=== PATIENT | male | born 1955 | race Caucasian/White ===

== ENCOUNTER → 2016-05-18 | Outpatient (CLI) | payer OTHER ==
[~2016-05-18] MED LIST: ALB/IPRATROPIUM/1 E1 INH; ALBUTEROL17 GM INH; ALLOPURINOL300 MG PO; ASPIRIN81 MG PO; ATIVAN0.5 MG PO; AUGMENTIN875 M1 PO; AUGMENTIN875 MG PO; BELVIQ10 MG PO; BUMEX2 MG PO; BUSPAR15 M2 PO; CETIRIZINE HCL10 MG PO; CLONIDINE HCL0.3 MG PO; COGENTIN1 M1 PO; DOESN'T KNOW; FLUOXETINE HCL20 M1 PO; HALDOL PO; HYDROCODONE-APA1 T56 PO; KLONOPIN1 MG PO; LACTINEX C1 TAB.CHEW PO; LEVAQUIN PO; LEVAQUIN750 MG PO; LIPITOR20 MG PO; LIPITOR40 MG PO; LISINOPRIL20 MG PO; MEDROL DOSEPAK4 MG PO; METOPROLOL SUCC50 MG PO; METOPROLOL TAR25 MG PO; MINIPRESS1 MG PO; MOBIC15 MG PO; NEURONTIN800 MG PO; NORCO 10-325 TA1 TAB PO; NORCO 5/325 TAB1 TAB PO; POTASSIUM CHLO10 MEQ PO; PRAZOSIN HCL2 MG PO; PREDNISONE PO; PROTONIX PO; PROZAC10 M1 PO; TESTOSTERON200 MG/M1 IM; TIZANIDINE HCL4 M1 PO; TYLENOL325 M1 PO; VENLAFAXINE HCL75 MG PO; VISTARIL PO; ZESTRIL40 MG PO; ZYLOPRIM100 MG PO
[2016-05-18 15:31] LABS: BASOPHIL# 0.1 X10e3 (0-0.3); BASOPHIL% 0.9 % (0-2.5); EOSINOPHIL# 0.1 X10e3 (0-0.7); HEMATOCRIT 42.3 % (38.0-50.0); HEMOGLOBIN 13.9 gm/dL (13.0-16.0); LYMPHOCYTE# 2.8 X10e3 (1.0-3.5); LYMPHOCYTE% 26.7 % (17.0-45.0); MEAN CELL VOLUME 81.4 FL (83-96); MEAN CORPUSCULAR HEMOGLOBIN 26.8 PG (28-34); MEAN CORPUSCULAR HGB CONC 32.9 g/dL (30-36); MONOCYTE# 0.9 X10e3 (0-1.0); MONOCYTE% 9.1 % (3.0-12.0); NEUTROPHIL# 6.5 X10e3 (1.5-7.1); NEUTROPHIL% 62.3 % (40-75); PLATELET COUNT 210 X10e3 (140-420); RED CELL DISTRIBUTION WIDTH 14.9 % (11.0-15.5); WHITE BLOOD COUNT 10.4 X10e3 (4.0-10.5)
[2016-05-18 15:33] LABS: DIFF IND NO
[2016-05-18 15:49] LABS: BLOOD UREA NITROGEN 18 mg/dL (9-23); CALCIUM SERUM 9.2 mg/dL (8.4-10.2); CARBON DIOXIDE 31 mmol/L (22-31); CHLORIDE 103 mmol/L (100-111); CHOLESTEROL 73 mg/dL (0-200); GLOM FILT RATE Estimated ABOVE60 mL/min (>60); GLUCOSE FASTING 87 mg/dL (70-110); HDL CHOLESTEROL 45 mg/dL (29-75); LDL CHOLESTEROL 16 mg/dL (-130); LDL/HDL RATIO 0 RATIO (0-4); POTASSIUM 4.1 mmol/L (3.5-5.1); SODIUM 140 mmol/L (135-145); TRIGLYCERIDES 60 mg/dL (10-160)
[2016-05-18 15:57] LABS: THYROID STIMULATING HORMONE 1.05 uIU/ml (0.34-5.60)
[2016-05-18 16:04] LABS: FREE THYROXIN (T4) 1.04 ng/dL (0.58-1.64)
== END | disposition home or self-care (01) ==
LOC: CLAB 14:37
PROVIDERS: Family Medicine
DX: E29.1 Testicular hypofunction (principal); I10 Essential (primary) hypertension; J44.9 Chronic obstructive pulmonary disease, unspecified; F34.1 Dysthymic disorder; E78.2 Mixed hyperlipidemia
CPT/HCPCS: 36415; 80048; 80061; 84439; 84443; 85025

== ENCOUNTER → 2016-06-15 | Outpatient (CLI) | payer OTHER ==
[2016-06-15 16:15] LABS: URINE APPEARANCE CLEAR; URINE BILIRUBIN NEG (NEG); URINE BLOOD NEG (NEG); URINE COLOR YELLOW; URINE GLUCOSE NEG (NEG); URINE KETONE NEG (NEG); URINE LEUKOCYTE ESTERASE NEG (NEG); URINE NITRATE NEG (NEG); URINE PH 6.5 (5-8); URINE PROTEIN NEG (NEG); URINE SPECIFIC GRAVITY 1.008 (1.003-1.035); URINE UROBILINOGEN 0.2 MG/DL (NEG)
[2016-06-15 16:16] LABS: BASOPHIL# 0.1 X10e3 (0-0.3); EOSINOPHIL# 0.1 X10e3 (0-0.7); EOSINOPHIL% 1.1 % (0.0-7.0); HEMOGLOBIN 14.7 gm/dL (13.0-16.0); LYMPHOCYTE# 3.1 X10e3 (1.0-3.5); LYMPHOCYTE% 25.6 % (17.0-45.0); MEAN CELL VOLUME 81.9 FL (83-96); MEAN CORPUSCULAR HEMOGLOBIN 27.3 PG (28-34); MEAN CORPUSCULAR HGB CONC 33.4 g/dL (30-36); MEAN PLATELET VOLUME 9.4 FL (6.5-11.5); MONOCYTE# 0.9 X10e3 (0-1.0); MONOCYTE% 7.7 % (3.0-12.0); NEUTROPHIL# 7.8 X10e3 (1.5-7.1); NEUTROPHIL% 64.6 % (40-75); PLATELET COUNT 203 X10e3 (140-420); RED BLOOD COUNT 5.37 X10e (3.90-5.60); RED CELL DISTRIBUTION WIDTH 15.1 % (11.0-15.5); WHITE BLOOD COUNT 12.1 X10e3 (4.0-10.5)
[2016-06-15 16:21] LABS: DIFF IND NO
[2016-06-15 16:23] LABS: CREATININE,RANDOM URINE 26 mg/dL; TOTAL PROTEIN,RANDOM URINE <10 mg/dl (<10)
[2016-06-15 16:45] LABS: BILIRUBIN, DIRECT 0.2 mg/dL (0.0-0.2); BILIRUBIN,INDIRECT 1.1 mg/dL (0.0-0.9); BILIRUBIN,TOTAL 1.3 mg/dL (0.2-2.0); CALCIUM SERUM 9.4 mg/dL (8.4-10.2); POTASSIUM 3.7 mmol/L (3.5-5.1); PROTEIN TOTAL SERUM 7.3 g/dL (6.0-8.3)
[2016-06-15 16:47] LABS: PROSTATE SPECIFIC AG SCR 0.45 ng/ml (0.0-4.0); THYROID STIMULATING HORMONE 1.53 uIU/ml (0.34-5.60)
[2016-06-15 16:54] LABS: FREE THYROXIN (T4) 0.85 ng/dL (0.58-1.64)
[2016-06-22 07:28] LABS: ALDOSTERONE SERUM 4 ng/dL (***); CALCIUM (PTHINTACT) 9.5 mg/dL (8.6-10.3)
== END | disposition home or self-care (01) ==
LOC: CLAB 15:05
PROVIDERS: Internal Medicine Nephrology
DX: N18.3 Chronic kidney disease, stage 3 (moderate) (principal)
CPT/HCPCS: 36415; 80048; 80076; 81003; 82088; 82306; 82310; 82550; 82570; 82607; 82652; 83036; 83540; 83550; 83735; 83970; 84100; 84156; 84436; 84439; 84443; 84479; 84550; 85025; 86335; G0103

== ENCOUNTER 2016-07-29 21:50 | Observation (INO) | payer OTHER ==
--- NOTE | ~2016-07-29 | CO ---
Unit #: [id number] #: [id number] Patient: PREET HOWARD [id number] [facility] [address] [place], [place] [address] [id number] MR#: [id number] NAME: PREET HOWARD ROOM: 576 Age: 60 Sex: M Admission Date: 07/30/2016 : 1955 Attending Physician: Stephan Mead M.D. Primary Care Physician: Tracie Weathers M.D. Consultation Date: 07/31/2016 CONSULTATION REPORT REASON FOR CONSULTATION Followup. DISCUSSION Mr. Preet Howard is a 60-year-old white male, seen in room 576, bed 1 on 07/31/2016 at [facility]. The patient reports medication is helping with the anxiety, feeling better, able to sleep good, still having anxiety and depression, but denied any suicidal or homicidal ideation. Denied any psychotic symptom. The patient's vital signs; temperature 99.1, pulse 61, respirations 20, blood pressure 118/74, oxygen saturation 99%. REVIEW OF SYSTEMS Complete review of systems is unremarkable. MENTAL STATUS EXAMINATION Vital signs; please see above. General appearance; the patient is moderately obese, dressed casually, sitting comfortably in chair, eating his lunch. Attention span and concentration, fair. Speech; regular rate and coherent. Oriented in time, place, and person. Mood and affect, labile. Speech, monotone. Thought process, concrete. The patient denied any thoughts of harming self or others. Denied any psychotic symptom. Recent and remote memory, fair. Language, intact. Fund of knowledge, fair. Insight and judgment, fair to slightly impaired. DIAGNOSES Psychiatric: Major depressive disorder, recurrent, severe, F33.2; anxiety disorder, not otherwise specified, F40.01. ASSESSMENT AND PLAN 1. Supportive psychotherapy and psychoeducation provided to the patient. 2. Educated about benefits and side effects of medication and course and prognosis of illness. 3. Advised to continue with current treatment. If needed, consider further adjustment of medication. The patient was advised to follow up in outpatient program at [facility] and given information and telephone #[phone]. Please feel free to call if any questions, telephone #[phone]. Dictated by... Rock Serrano M.D. [facility] [place] Unit #: [id number] #: [id number] Patient: PREET HOWARD TD: 08/01/2016 13:51 JOB #: [id number] CONSULTATION REPORT Page 1 of 1 X Rock Serrano MD X CONSULTATION REPORT
--- NOTE | ~2016-07-29 | CO ---
Unit #: [id number] #: [id number] Patient: PREET HOWARD [id number] [address] [facility]. [place], [place] [address] [id number] MR#: [id number] NAME: PREET HOWARD ROOM: 576 Age: 60 Sex: M Admission Date: 07/30/2016 : 1955 Attending Physician: Stephan Mead M.D. Primary Care Physician: Tracie Weathers M.D. CONSULTATION REPORT REASON FOR CONSULTATION Depression, anxiety, panic attack. HISTORY OF PRESENT ILLNESS Mr. Waller is a 60-year-old white male, seen in room 576, bed 1 on 07/30/2016 at [facility]. The patient reports that he has been taking medication for depression from the last 1 year on Prozac and BuSpar, but in the last 2 months, his depression and anxiety is getting worse and reported increase in panic attack. The patient reported Ativan helped him. No history of any substance abuse. The patient has a good support system. The patient was admitted due to heart problems. The patient was pleasant and cooperative during interview. Denied any suicidal or homicidal ideation. Denied any psychotic symptom, but feeling sad, depressed, anxious, nervous. PAST PSYCHIATRIC HISTORY Remarkable for history of depression and anxiety. No history of any suicide attempt or any inpatient treatment. MEDICAL HISTORY Remarkable for history of obstructive sleep apnea, obesity, hypertension, hyperlipidemia, depression, gout, degenerative joint disease. ALLERGIES No known drug allergies. MEDICATIONS The patient is on Lipitor 20 mg daily, Zyloprim, Claritin, Prozac 60 mg daily, Lopressor, bumetanide, aspirin, Neurontin, Zofran. FAMILY HISTORY AND SOCIAL HISTORY The patient has a good support system from family. No history of abuse. No history of any substance abuse. REVIEW OF SYSTEMS Complete review of systems is unremarkable. MENTAL STATUS EXAMINATION Vital signs; temperature 97.9, pulse 60, respirations 18, blood pressure 152/89, oxygen saturation 98%. General appearance; the patient moderately obese, receiving oxygen through the nasal cannula, eating his lunch, compliant and cooperative. Attention span and concentration, fair. Speech, regular rate. Oriented in time, place, and person. Mood and affect; sad, dysphoric, anxious. Thought process, coherent. Thought Unit #: [id number] #: [id number] Patient: PREET HOWARD content, the patient denied any thoughts of harming self or others, but somewhat guarded. Recent and remote memory, fair. Language, intact. Fund of knowledge, fair. Insight and judgment, fair to slightly impaired. DIAGNOSES Psychiatric: Major depressive disorder, recurrent, severe, F33.2; agoraphobia with panic disorder, F40.01. Secondary diagnosis: Deferred. Medical diagnosis: Please refer to H and P. Stressors: Psychosocial stressors. ASSESSMENT/PLAN 1. Supportive psychotherapy and psychoeducation provided to the patient. 2. Educated about benefits and side effects of medication and course and prognosis of illness. 3. Advised to continue with current medication of Prozac and Minipress with a plan to add Ativan 0.5 mg t.i.d. and 1 mg dose now, and Vistaril 25 mg t.i.d. We will continue to follow. Please feel free to call if any questions telephone #[phone]. Dictated by... Anita Javier/sonny TD: 07/31/2016 02:02 JOB #: [id number] CONSULTATION REPORT Page 1 of 1 X Rock Serrano MD CONSULTATION REPORT
--- NOTE | ~2016-07-29 | CR72 ---
[facility] A Service of [facility] & [facility] RADIOLOGY TEXT RESULTS PATIENT: PREET HOWARD LOCATION: [facility] 576-01 : [birth year] UNIT #: [id number] AGE: [address]: Stephan Mead MD SEX: M ORDER DR: [id number] [facility] [address] [place], [place] [address] [id number] I MR#: [id number] Acc #: [id number] NAME: PREET HOWARD : 1955 SEX: M STUDY DATE/TIME: 07/29/2016 22:43 UNIT: [facility] ROOM: [id number] STUDY DESCRIPTION: CR Chest Single View Portable Attending Physician: Stephan Mead M.D. Ordering Physician: Peter Patrick M.D. Primary Care Physician: Tracie Weathers M.D. MEDICAL IMAGING REPORT This report is preliminary unless electronic signature is present EXAM Single view chest INDICATIONS Chest pain for 1 day. Shortness of air. FINDINGS Single portable AP view of the chest compared to 10/24/2015. Heart and mediastinal contours are within normal limits. Lungs are clear. No pneumothorax. IMPRESSION No acute cardiopulmonary findings. Dictated by... Hugo Palm M.D. THIS IS AN ELECTRONICALLY VERIFIED REPORT Hugo Palm M.D. at 07/31/2016 12:50 AM C/broderick TD: 07/29/2016 23:15 JOB #: [id number] MEDICAL IMAGING REPORT Page 1 of 1 COPY
--- NOTE | ~2016-07-29 | EKG ---
PATIENT: PREET HOWARD UNIT #: [id number] Ventricular Rate: 52 BPM Atrial Rate: 52 BPM P-R Interval: 150 ms QRS Duration: 92 ms Q-T Interval: 494 ms QTC Calculation(Bezet): 459 ms P [place]: 51 degrees Calculated R [place]: -10 degrees Calculated T [place]: 12 degrees Diagnosis Line: Sinus bradycardia Diagnosis Line: Otherwise normal ECG Diagnosis Line: Diagnosis Line: Confirmed by RAJWINDER GUADARRAMA MD ([id number]) on Diagnosis Line: 07/30/2016 1:18:55 PM INTERPRETING MD: GREGG
--- NOTE | ~2016-07-29 | CO ---
Unit #: [id number] #: [id number] Patient: PREET HOWARD [id number] [address] [place], [place] [address] [id number] I MR#: [id number] NAME: PREET HOWARD ROOM: 576 Age: 60 Sex: M Admission Date: 07/30/2016 : 1955 Attending Physician: Stephan Mead M.D. Primary Care Physician: Tracie Weathers M.D. CONSULTATION REPORT JOB NOTE: CC: DR. WEATHERS. HISTORY OF PRESENT ILLNESS This is a 60-year-old white male, who had a heart catheterization at [facility] back in 2014 that was reported to have 30% stenosis in the distal LAD, 40% stenosis in the ostial of the RCA. The rest of the coronaries were essentially normal. Echo done back in 2015 showed LVEF of 55% to 60%. Also, the patient has history of diastolic congestive heart failure, hypertension, hyperlipidemia, obstructive sleep apnea with history of hypoventilation syndrome, wears home oxygen and uses a CPAP. He required esophageal dilatation last year for his esophageal stenosis. He has depression. He is a nonsmoker. The patient came in for this recurrent chest pain. He has been experiencing almost 3 weeks. He describes it as a sharp shooting pain, mostly in the midsternal, sometimes goes over to the left anterior chest wall. He gets a little clammy. He has some nausea, but no vomiting. He gets a little dizzy, but denies any presyncope or syncopal episodes. He has occasional palpitations. He denies any increased lower extremity edema. He has not had any recent increased cough, fever, or chills. The patient was concerned with these symptoms, he came in for further evaluation. Last time, he had seen Dr. Tovar was back in 2015. In the emergency room, the patient's blood pressure was 136/70, heart rate was 58, respirations 18, temperature 98.8, and O2 saturation was 99%. He wears 3 L. His chest x-ray did not show anything acute. His EKG showed sinus rhythm, left atrial abnormality, nonspecific ST-T wave abnormalities. Initial cardiac enzymes are negative. His potassium was found to be 3.2, creatinine 1.0, and WBC 11.5. The patient was given aspirin 325 and Ativan 1 mg IV. The patient seems to be resting comfortably. He will be admitted for further evaluation and management. PAST MEDICAL HISTORY 1. Coronary artery disease, cardiac cath done at [facility] back in 2014, reported that had minimal luminal irregularities in the LAD, but 30% stenosis in the distal LAD - ostial of the RCA 40% stenosis, the rest of the RCA luminal irregularities. In 07/2015, 2D echo, LVEF of 55% to 60% with moderate left ventricular hypertrophy and mild tricuspid regurgitation. 2. Hypertension. 3. Hyperlipidemia. 4. History of diastolic congestive heart failure. 5. Degenerative joint disease and gout. 6. Obstructive sleep apnea with history of hypoventilation syndrome, on home oxygen. Unit #: [id number] #: [id number] Patient: PREET HOWARD 7. History of dysphagia, in 10/2015, has esophageal stenosis on an EGD, requiring esophageal dilatation and removal of foreign body. 8. Depression. 9. Posttraumatic stress syndrome. 10. Obesity. BMI is 45 with weight of 280 pounds. 11. Nonsmoker. PAST SURGICAL HISTORY In 10/2015, esophageal dilatation for esophageal stenosis. HOME MEDICATIONS Lipitor 20 mg p.o. at bedtime, Neurontin 800 mg p.o. t.i.d., aspirin 81 mg p.o. daily, Cetirizine 10 mg p.o. daily, Prozac 20 mg three capsules in the morning, prazosin 2 mg p.o. at bedtime and 1 mg at breakfast, BuSpar 15 mg p.o. t.i.d., Bumex 2 mg p.o. daily, metoprolol 50 mg p.o. daily, and allopurinol 300 mg p.o. daily. ALLERGIES No known drug allergies. SOCIAL HISTORY The patient lives in his home alone. He is very sedentary. No alcohol or illicit drug abuse. He has been a lifelong nonsmoker. FAMILY HISTORY Both of his parents from lung cancer. His siblings are in generally well health. REVIEW OF SYSTEMS CONSTITUTIONAL: Denies fever or chills. No recent weight gain or weight loss. HEENT: Denies headache or dizziness. No visual or hearing changes. No lymphadenopathy or thyromegaly. Currently, no difficulty swallowing. CARDIOVASCULAR: Chest pain present. Denies palpitations. Denies paroxysmal nocturnal dyspnea or orthopnea. GASTROINTESTINAL: Denies nausea, vomiting, diarrhea, or abdominal pain. NEUROLOGY: No focal weakness. PHYSICAL EXAMINATION GENERAL: Mr. Howard is a 60-year-old white male, in no acute respiratory distress. He is awake, alert, and oriented. VITAL SIGNS: Blood pressure is 145/96, heart rate 78, respirations 16, temperature 97.7, and O2 saturations 96% on room air. NECK: Trachea midline. No thyromegaly or lymphadenopathy. Normal carotid upstrokes. No jugular venous distention. HEART: S1 and S2. Regular rate and rhythm. No clicks, murmurs, or rubs. LUNGS: Diminished, otherwise clear. ABDOMEN: Obese, soft, and nontender. EXTREMITIES: Pedal pulses are palpable. 1+ pedal edema. DIAGNOSTIC STUDIES LABORATORY RESULTS: Glucose is 94, BUN 15, creatinine 0.9, eGFR is 93.2, sodium 139, potassium is 3.2, chloride 102, CO2 of 27, calcium 10.9, magnesium is 2.0, total protein 7.0, albumin 3.8, bilirubin total 1.2, AST is 28, ALT 31, and alkaline phosphatase is 99. WBCs 11.5, hemoglobin 13.6, hematocrit 40.9, and platelets 183. Protime is 10.7, INR is 1.0. Prothrombin is pending. Unit #: [id number] #: [id number] Patient: PREET HOWARD IMAGING STUDIES: Chest x-ray shows nothing acute. Lungs are clear. CARDIOVASCULAR STUDIES: EKG shows a sinus bradycardia, heart rate 52 beats per minute, poor R-wave progression, prolonged QT with ST-T wave inversion in inferolateral leads. IMPRESSION 1. Atypical chest pain. 2. Anxiety. 3. History of cardiac cath back in 2014. See details in HPI. 4. Hypokalemia. 5. LVEF of 55% to 60% on echo in 07/2015. 6. Hypertension. 7. Hyperlipidemia. 8. History of diastolic congestive heart failure. 9. Obstructive sleep apnea, uses CPAP. 10. Obesity with body mass index of 45 with weight of 280 pounds. 11. Depression and posttraumatic stress disorder. 12. Degenerative joint disease. 13. Gout. 14. Nonsmoker. PLAN 1. Continue to monitor cardiac enzymes and EKG. So far, they were negative on interview and exam. The patient's chest pain is fairly atypical. His last cardiac cath a couple of years ago showed mild nonobstructive CAD, so if his enzymes remain negative, we will just follow up as an outpatient. 2. The patient thinks most of his symptoms could be from anxiety. We will have Dr. Serrano to see the patient for anxiety issues. 3. As Dr. Rm, Pulmonology to see for his hypoventilation syndrome, I would see if his symptoms could possibly be something pulmonary. 4. Obtain a fasting lipid profile and TSH and evaluate. 5. We will supplement the patient's potassium. 6. Obtain a 2D echo and re-evaluate his LV function and valves. See if there is anything abnormal that would cause the symptoms. 7. Encourage the patient healthy lifestyle changes including exercise and lose weight. 8. Further recommendations pending per Dr. Rosas. Thank you very much for allowing us to assist in the care. Dictated by... Herminia Gayle/sonny TD: 07/31/2016 05:28 JOB #: [id number] Unit #: [id number] #: [id number] Patient: PREET HOWARD CONSULTATION REPORT Page 1 of 1 X Danette Khan APRN X CONSULTATION REPORT
--- NOTE | ~2016-07-29 | EKG ---
PATIENT: PREET HOWARD UNIT #: [id number] Ventricular Rate: 62 BPM Atrial Rate: 62 BPM P-R Interval: 148 ms QRS Duration: 86 ms Q-T Interval: 440 ms QTC Calculation(Bezet): 446 ms P [place]: 26 degrees Calculated R [place]: -24 degrees Calculated T [place]: -5 degrees Diagnosis Line: Normal sinus rhythm Diagnosis Line: Possible Left atrial enlargement Diagnosis Line: Borderline ECG Diagnosis Line: No previous ECGs available Diagnosis Line: Confirmed by RAJWINDER GUADARRAMA MD ([id number]) on Diagnosis Line: 07/30/2016 1:17:58 PM INTERPRETING MD: GREGG
--- NOTE | ~2016-07-29 | CO ---
Unit #: [id number] #: [id number] Patient: PREET HOWARD [id number] [address] [address] [id number] MR#: [id number] NAME: PREET HOWARD ROOM: 576 Age: 60 Sex: M Admission Date: 07/30/2016 : 1955 Attending Physician: Stephan Mead M.D. Primary Care Physician: Tracie Weathers M.D. CONSULTATION REPORT REASON FOR CONSULTATION Shortness of breath. HISTORY OF PRESENT ILLNESS This patient basically is a 60-year-old male with a past medical history of obstructive sleep apnea on CPAP, coronary artery disease, hypertension, dyslipidemia, diastolic heart failure, obesity, hypoventilation syndrome on home oxygen, presents with a complaint of shortness of breath and chest pain. Had esophageal dilatation done in the past and admitted with chest pain. I am seeing him at the bedside, currently on oxygen. Denies any headache, blurry vision, chest pain. PHYSICAL EXAMINATION VITAL SIGNS: Temperature 98, pulse 87, respirations 12, blood pressure 130/70. NEUROLOGICAL: Awake, alert, oriented. No neuro deficit. HEENT: PERRLA. NECK: Supple. No JVD. CHEST: Bilateral air entry, bilateral mild rhonchi. GI: Nontender, soft. Bowel sounds positive. EXTREMITIES: No edema. SKIN: No rashes, no ulcers. LYMPHATIC: No lymphadenopathy. DIAGNOSTIC STUDIES Labs and imaging have been reviewed. LABORATORY: White count is 11, hemoglobin 13, hematocrit is 40. IMAGING: Chest x-ray - no acute cardiopulmonary infiltrate. PAST MEDICAL HISTORY As described above. SOCIAL HISTORY Nonsmoker, no alcohol, no drug abuse. MEDICATIONS As per MAR, has been reviewed. FAMILY HISTORY Positive for lung cancer. Unit #: [id number] #: [id number] Patient: PREET HOWARD ASSESSMENT AND PLAN 1. Chest pain. 2. Shortness of breath. 3. Obstructive sleep apnea, on home oxygen. 4. Diastolic heart failure. Plan is to continue oxygen, bronchodilator. Continue CPAP at night. D-dimer. Will continue to follow patient. Please see orders for detailed plan. Thank you very much for this consultation. We will continue to follow. Dictated by... Anita Douglas/leilani TD: 07/30/2016 12:09 JOB #: [id number] CONSULTATION REPORT Page 1 of 1 X Courtney Rm MD CONSULTATION REPORT
--- NOTE | ~2016-07-29 | BMI ---
[facility] DATE: 07/31/16 Patient: PREET HOWARD Physician: TRACY Address: [address] [place] [address] Room/Bed: [address] [place] [address], Zip: [place] [address] Admit Date: 07/30/16 Date of : [birth year] Height: 5 6 Weight: 286 130 HIGH BMI NOTE: DX: 60 Y.O. MALE ADMITTED FOR CP X 3 WEEKS ANTHROPOMETRICS: 5'6", WT: 280# (127 KG), BMI: 45.2 DIET: HEALTHY HEART INTERVENTION: 1. HEALTHY HEART DIET RECOMMENDATIONS: 1. RECOMMEND TO CONTINUE CURRENT DIET ORDER ABOVE TO PROMOTE GRADUAL WEIGHT LOSS TOWARDS HEALTHY BMI (19.0-25.0) OR +/-10%IBW RD WILL F/U PER PROTOCOL Respectfully, SANDRA WILLSON MS, RD, LD [facility] cc: client file
--- NOTE | ~2016-07-29 | HP ---
Unit #: [id number] #: [id number] Patient: PREET HOWARD [id number] [address] [place], [place] [address] [id number] I MR#: [id number] NAME: PREET HOWARD ROOM: [facility] Age: 60 Sex: M Admission Date: 07/30/2016 : 1955 Attending Physician: Stephan Mead M.D. Primary Care Physician: Tracie Weathers M.D. HISTORY AND PHYSICAL ADDENDUM The patient presented to the hospital with complaints of chest pain, which was atypical in nature. Serial cardiac enzymes were negative, and he ruled out for a myocardial infarction. Some of his symptoms were thought to be due to anxiety. Dr. Serrano with psychiatry was consulted, and the patient was started on Ativan 0.5 mg p.o. t.i.d. and Vistaril 25 mg p.o. t.i.d. He had some shortness of breath but no evidence of congestive heart failure on exam or chest x-ray. D-dimer was normal, and no further imaging was required. The patient had a cardiac catheterization in 2014 at [facility], which revealed nonobstructive disease up to 30% to 40%. Due to atypical features and nonobstructive disease, no further ischemic workup was completed. He has ambulated without complaints. His O2 saturation is 95% on 3 liters of home oxygen. He is stable and will be discharged home on home oxygen as previously ordered. Prescriptions have been provided for Vistaril, Ativan and Minipress. A followup appointment has been arranged with Dr. Tovar in October. Dictated by Chloe Tatum APRN for Gonzalez Tovar M.D. TR/anil TD: 07/31/2016 17:09 JOB #: [id number] HISTORY AND PHYSICAL Page 1 of 1 X X HISTORY AND PHYSICAL
--- NOTE | ~2016-07-29 | EKG ---
PATIENT: PREET HOWARD UNIT #: [id number] Ventricular Rate: 57 BPM Atrial Rate: 57 BPM P-R Interval: 154 ms QRS Duration: 88 ms Q-T Interval: 458 ms QTC Calculation(Bezet): 445 ms P [place]: 38 degrees Calculated T [place]: 1 degrees Diagnosis Line: Sinus bradycardia Diagnosis Line: Normal ECG Diagnosis Line: When compared with ECG of 30-JUL-2016 07:49, Diagnosis Line: No significant change was found Diagnosis Line: Confirmed by JOVANNI ZEPEDA MD ([id number]) on Diagnosis Line: 08/04/2016 5:13:04 PM INTERPRETING MD: JH
[~2016-07-29 21:50] MED LIST changes: -ALLOPURINOL300 MG PO; -ATIVAN0.5 MG PO; -BUSPAR15 M2 PO; -METOPROLOL TAR25 MG PO; -MINIPRESS1 MG PO; -PRAZOSIN HCL2 MG PO; -PROZAC10 M1 PO; -VISTARIL PO
[2016-07-30 02:00] LABS: BASOPHIL# 0.1 X10e3 (0-0.3); BASOPHIL% 0.7 % (0-2.5); DIFF IND NO; EOSINOPHIL# 0.1 X10e3 (0-0.7); EOSINOPHIL% 1.1 % (0.0-7.0); HEMATOCRIT 40.9 % (38.0-50.0); HEMOGLOBIN 13.6 gm/dL (13.0-16.0); LYMPHOCYTE# 3.1 X10e3 (1.0-3.5); LYMPHOCYTE% 27.1 % (17.0-45.0); MEAN CELL VOLUME 82.6 FL (83-96); MEAN CORPUSCULAR HEMOGLOBIN 27.5 PG (28-34); MEAN CORPUSCULAR HGB CONC 33.3 g/dL (30-36); MONOCYTE# 1.2 X10e3 (0-1.0); NEUTROPHIL% 61.1 % (40-75); PLATELET COUNT 183 X10e3 (140-420); RED BLOOD COUNT 4.96 X10e (3.90-5.60); RED CELL DISTRIBUTION WIDTH 14.9 % (11.0-15.5); WHITE BLOOD COUNT 11.5 X10e3 (4.0-10.5)
[2016-07-30 02:07] LABS: POC - CKMB 1.1 ng/mL (0.0-7.9); POC - TROPONIN <0.05 ng/mL (<=0.05)
[2016-07-30 02:30] LABS: ALBUMIN SERUM 3.8 g/dL (3.5-5.0); BILIRUBIN, DIRECT 0.2 mg/dL (0.0-0.2); BILIRUBIN,TOTAL 1.2 mg/dL (0.2-2.0); CALCIUM SERUM 8.7 mg/dL (8.4-10.2); POTASSIUM 3.2 mmol/L (3.5-5.1)
[2016-07-30] MEDS ORDERED: PROZAC10 M1 PO (05:02)
[2016-07-30] MEDS ORDERED: PRAZOSIN HCL2 MG PO (05:03)
[2016-07-30] MEDS ORDERED: BUSPAR15 M2 PO (05:04)
[2016-07-30] MEDS ORDERED: BUMEX2 MG PO (05:05)
[2016-07-30] MEDS ORDERED: METOPROLOL TAR25 MG PO (05:06)
[2016-07-30] MEDS ORDERED: ALLOPURINOL300 MG PO (05:06)
[2016-07-30 07:03] LABS: POC - CKMB <1.0 ng/mL (0.0-7.9); POC - TROPONIN <0.05 ng/mL (<=0.05)
[2016-07-30 07:56] LABS: BUN/CREATININE RATIO 16.66; CALCIUM SERUM 8.9 mg/dL (8.4-10.2); CREATININE SERUM 0.9 mg/dL (0.6-1.4); GLOM FILT RATE Estimated 93.2 mL/min (>60); POTASSIUM 3.5 mmol/L (3.5-5.1)
[2016-07-30 09:21] LABS: PROTHROMBIN TIME (PATIENT) 10.7 SECONDS (9.6-11.5)
[2016-07-30 10:53] LABS: CHOLESTEROL 66 mg/dL (0-200); HDL CHOLESTEROL 48 mg/dL (29-75); LDL CHOLESTEROL 10 mg/dL (-130); LDL/HDL RATIO 0 RATIO (0-4); TRIGLYCERIDES 39 mg/dL (10-160)
[2016-07-31 13:11] LABS: PROTHROMBIN TIME (PATIENT) 10.2 SECONDS (9.6-11.5)
[2016-07-31 13:24] LABS: BUN/CREATININE RATIO 15.55; CALCIUM SERUM 8.9 mg/dL (8.4-10.2); CREATININE SERUM 0.9 mg/dL (0.6-1.4); GLOM FILT RATE Estimated 93.2 mL/min (>60); MAGNESIUM 1.9 mg/dL (1.6-3.0); POTASSIUM 3.6 mmol/L (3.5-5.1)
[2016-07-31] MEDS ORDERED: MINIPRESS1 MG PO (15:20)
[2016-07-31] MEDS ORDERED: ATIVAN0.5 MG PO (15:21)
[2016-07-31] MEDS ORDERED: VISTARIL PO (15:21)
== END 2016-07-31 17:14 | disposition home or self-care (01) ==
LOC: CED 21:50 → CEDOF 07-30 04:15 → C5C 07-30 04:15 → CEDOF 07-30 04:51 → CED 07-30 04:51 → C5C 07-30 09:04 → CEDOF 07-30 09:04 → C5C 07-31 17:14
PROVIDERS: Emergency Medicine; Internal Medicine Cardiovascular Disease
DX: R07.89 Other chest pain (principal); F33.2 Major depressive disorder, recurrent severe without psychotic features; F40.01 Agoraphobia with panic disorder; G47.33 Obstructive sleep apnea (adult) (pediatric); I25.10 Atherosclerotic heart disease of native coronary artery without angina pectoris; I11.0 Hypertensive heart disease with heart failure; I50.30 Unspecified diastolic (congestive) heart failure; I08.1 Rheumatic disorders of both mitral and tricuspid valves; E78.5 Hyperlipidemia, unspecified; K21.9 Gastro-esophageal reflux disease without esophagitis; M10.9 Gout, unspecified; E66.01 Morbid (severe) obesity due to excess calories; Z80.1 Family history of malignant neoplasm of trachea, bronchus and lung
CPT/HCPCS: 36415; 71010; 80048; 80061; 80076; 82553; 83735; 84443; 84484; 85025; 85379; 85610; 93005; 93306; 99285; G0378; J2060

== ENCOUNTER 2016-08-26 16:17 | Emergency (ER) | payer OTHER ==
--- NOTE | ~2016-08-26 | CR72 ---
[facility] A Service of [facility] & [facility] RADIOLOGY TEXT RESULTS PATIENT: PREET HOWARD LOCATION: [facility] : 57 UNIT #: [id number] AGE: [address]: Douglas Osuna MD SEX: M ORDER DR: [id number] [facility] [address] [place], [place] [address] [id number] MR#: [id number] Acc #: [id number] NAME: PREET HOWARD : 1955 SEX: M STUDY DATE/TIME: 08/26/2016 16:57 UNIT: [facility] ROOM: STUDY DESCRIPTION: CR Chest Single View Portable Attending Physician: Douglas Osuna M.D. Ordering Physician: Douglas Osuna M.D. Primary Care Physician: Tracie Weathers M.D. MEDICAL IMAGING REPORT This report is preliminary unless electronic signature is present EXAM Portable chest INDICATIONS Left-sided chest pain and shortness of air today. PROCEDURE Frontal view chest COMPARISON 07/29/2016 FINDINGS Heart size is unchanged. Pulmonary vessels are stable. There is no new dense consolidation, visible pleural fluid or pneumothorax. IMPRESSION No active process. No change from 07/29/2016. Dictated by... Phil Oneil M.D. THIS IS AN ELECTRONICALLY VERIFIED REPORT Phil Oneil M.D. at 08/27/2016 10:09 AM Oleg TD: 08/26/2016 17:36 JOB #: [id number] MEDICAL IMAGING REPORT Page 1 of 1 COPY
--- NOTE | ~2016-08-26 | EKG ---
PATIENT: PREET HOWARD UNIT #: [id number] Ventricular Rate: 77 BPM Atrial Rate: 77 BPM P-R Interval: 152 ms QRS Duration: 84 ms Q-T Interval: 380 ms QTC Calculation(Bezet): 430 ms P [place]: 42 degrees Calculated R [place]: -16 degrees Calculated T [place]: 0 degrees Diagnosis Line: Normal sinus rhythm Diagnosis Line: Normal ECG Diagnosis Line: When compared with ECG of 14-DEC-2012 13:16, Diagnosis Line: (unconfirmed) Diagnosis Line: Questionable change in QRS axis Diagnosis Line: Confirmed by JOVANNI ZEPEDA MD ([id number]) on Diagnosis Line: 08/27/2016 7:27:48 AM INTERPRETING MD: JH
[~2016-08-26 16:17] MED LIST changes: +ALLOPURINOL300 MG PO; +ATIVAN0.5 MG PO; +BUSPAR15 M2 PO; +METOPROLOL TAR25 MG PO; +MINIPRESS1 MG PO; +PRAZOSIN HCL2 MG PO; +PROZAC10 M1 PO; +VISTARIL PO
[2016-08-26 17:04] LABS: BASOPHIL# 0.1 X10e3 (0-0.3); BASOPHIL% 0.6 % (0-2.5); EOSINOPHIL# 0.1 X10e3 (0-0.7); EOSINOPHIL% 1.1 % (0.0-7.0); HEMATOCRIT 43.9 % (38.0-50.0); HEMOGLOBIN 14.2 gm/dL (13.0-16.0); LYMPHOCYTE# 2.3 X10e3 (1.0-3.5); LYMPHOCYTE% 19.8 % (17.0-45.0); MEAN CELL VOLUME 84.5 FL (83-96); MEAN CORPUSCULAR HEMOGLOBIN 27.4 PG (28-34); MEAN CORPUSCULAR HGB CONC 32.5 g/dL (30-36); MEAN PLATELET VOLUME 8.8 FL (6.5-11.5); MONOCYTE# 0.9 X10e3 (0-1.0); MONOCYTE% 7.6 % (3.0-12.0); NEUTROPHIL# 8.3 X10e3 (1.5-7.1); NEUTROPHIL% 70.9 % (40-75); PLATELET COUNT 186 X10e3 (140-420); RED BLOOD COUNT 5.19 X10e (3.90-5.60); RED CELL DISTRIBUTION WIDTH 15.3 % (11.0-15.5); WHITE BLOOD COUNT 11.7 X10e3 (4.0-10.5)
[2016-08-26 17:05] LABS: DIFF IND NO
[2016-08-26 17:17] LABS: PARTIAL THROMBOPLASTIN TIME 25.9 SECONDS (23.5-31.3); PROTHROMBIN TIME (PATIENT) 11.3 SECONDS (10.0-11.7)
[2016-08-26 17:25] LABS: ALBUMIN SERUM 3.6 g/dL (3.5-5.0); BILIRUBIN, DIRECT 0.2 mg/dL (0.0-0.2); BILIRUBIN,INDIRECT 1.1 mg/dL (0.0-0.9); BILIRUBIN,TOTAL 1.3 mg/dL (0.2-2.0); BUN/CREATININE RATIO 12.5; CALCIUM SERUM 8.8 mg/dL (8.4-10.2); CREATININE SERUM 0.8 mg/dL (0.6-1.4); GLOM FILT RATE Estimated 97.8 mL/min (>60); POTASSIUM 3.4 mmol/L (3.5-5.1); PROTEIN TOTAL SERUM 6.8 g/dL (6.0-8.3)
[2016-08-26 17:59] LABS: POC - CKMB 1.2 ng/mL (0.0-7.9); POC - TROPONIN <0.05 ng/mL (<=0.05)
[2016-08-26 18:10] LABS: POC - CKMB <1.0 ng/mL (0.0-7.9); POC - TROPONIN <0.05 ng/mL (<=0.05)
[2016-08-26 19:30] LABS: POC - CKMB <1.0 ng/mL (0.0-7.9); POC - TROPONIN <0.05 ng/mL (<=0.05)
[2016-08-26 20:16] LABS: POC - CKMB 1.3 ng/mL (0.0-7.9); POC - TROPONIN <0.05 ng/mL (<=0.05)
== END 2016-08-26 21:35 | disposition home or self-care (01) ==
LOC: CED 16:17
PROVIDERS: Emergency Medicine
DX: R07.89 Other chest pain (principal); E78.5 Hyperlipidemia, unspecified; I10 Essential (primary) hypertension; Z79.82 Long term (current) use of aspirin; Z79.899 Other long term (current) drug therapy
CPT/HCPCS: 71010; 80048; 80076; 82553; 83880; 84484; 85025; 85610; 85730; 93005; 99285

== ENCOUNTER 2016-09-10 12:38 | Emergency (ER) | payer OTHER ==
--- NOTE | ~2016-09-10 | CR72 ---
[facility] A Service of [facility] & [facility] RADIOLOGY TEXT RESULTS PATIENT: PREET HOWARD LOCATION: [facility] : 57 UNIT #: [id number] AGE: [address]: Jewel Deleon MD SEX: M ORDER DR: [id number] [facility] [address] [place], [place] [address] [id number] E MR#: [id number] Acc #: [id number] NAME: PREET HOWARD : 1955 SEX: M STUDY DATE/TIME: 09/10/2016 14:18 UNIT: [facility] ROOM: STUDY DESCRIPTION: CR Chest Single View Portable Attending Physician: Jewel Deleon M.D. Ordering Physician: Jewel Deleon M.D. Primary Care Physician: Tracie Weathers M.D. MEDICAL IMAGING REPORT This report is preliminary unless electronic signature is present EXAM Portable chest 09/10/2016 HISTORY 60-year-old male, chest pain, short of air past 3 weeks. History of high blood pressure, CVA x2. COMPARISON STUDIES Comparison 08/26/2016 FINDINGS AP portable chest demonstrates cardiac enlargement. There is mild vascular congestion and poor definition of costophrenic angles. No airspace infiltrates identified. Large body habitus noted. IMPRESSION Cardiomegaly with mild vascular congestion. Consider early or low grade heart failure. Large body habitus with low lung volumes. Dictated by... Sai Banks M.D. THIS IS AN ELECTRONICALLY VERIFIED REPORT Sai Banks M.D. at 09/11/2016 8:11 AM Isis TD: 09/10/2016 16:59 JOB #: [id number] MEDICAL IMAGING REPORT Page 1 of 1 COPY
--- NOTE | ~2016-09-10 | EKG ---
PATIENT: PREET HOWARD UNIT #: [id number] Ventricular Rate: 62 BPM Atrial Rate: 62 BPM P-R Interval: 152 ms QRS Duration: 86 ms Q-T Interval: 386 ms QTC Calculation(Bezet): 391 ms P [place]: 51 degrees Calculated R [place]: -22 degrees Calculated T [place]: -3 degrees Diagnosis Line: Normal sinus rhythm Diagnosis Line: Normal ECG Diagnosis Line: When compared with ECG of 26-AUG-2016 16:34, Diagnosis Line: No significant change was found Diagnosis Line: Confirmed by CUBA BRO MD ([id number]) on Diagnosis Line: 09/11/2016 8:00:19 AM INTERPRETING MD: ADALI DWYER
[2016-09-10 13:27] LABS: POC - CKMB <1.0 ng/mL (0.0-7.9); POC - TROPONIN <0.05 ng/mL (<=0.05)
[2016-09-10 14:05] LABS: BASOPHIL# 0.1 X10e3 (0-0.3); BASOPHIL% 0.9 % (0-2.5); EOSINOPHIL# 0.2 X10e3 (0-0.7); EOSINOPHIL% 1.6 % (0.0-7.0); HEMATOCRIT 44.1 % (38.0-50.0); HEMOGLOBIN 14.1 gm/dL (13.0-16.0); LYMPHOCYTE# 2.5 X10e3 (1.0-3.5); LYMPHOCYTE% 21.8 % (17.0-45.0); MEAN CELL VOLUME 84.1 FL (83-96); MEAN CORPUSCULAR HGB CONC 32.1 g/dL (30-36); MEAN PLATELET VOLUME 9.2 FL (6.5-11.5); MONOCYTE# 1.1 X10e3 (0-1.0); MONOCYTE% 9.5 % (3.0-12.0); NEUTROPHIL# 7.6 X10e3 (1.5-7.1); NEUTROPHIL% 66.2 % (40-75); PLATELET COUNT 173 X10e3 (140-420); RED BLOOD COUNT 5.24 X10e (3.90-5.60); RED CELL DISTRIBUTION WIDTH 14.7 % (11.0-15.5); WHITE BLOOD COUNT 11.5 X10e3 (4.0-10.5)
[2016-09-10 14:06] LABS: DIFF IND NO
[2016-09-10 14:25] LABS: ALBUMIN SERUM 3.6 g/dL (3.5-5.0); BILIRUBIN, DIRECT 0.2 mg/dL (0.0-0.2); BILIRUBIN,INDIRECT 0.9 mg/dL (0.0-0.9); BILIRUBIN,TOTAL 1.1 mg/dL (0.2-2.0); BUN/CREATININE RATIO 15.55; CREATININE SERUM 0.9 mg/dL (0.6-1.4); GLOM FILT RATE Estimated 93.2 mL/min (>60); PROTEIN TOTAL SERUM 6.8 g/dL (6.0-8.3)
[2016-09-10 14:29] LABS: PARTIAL THROMBOPLASTIN TIME 26.7 SECONDS (23.5-31.3); PROTHROMBIN TIME (PATIENT) 10.7 SECONDS (10.0-11.7)
[2016-09-10 15:12] LABS: POC - CKMB <1.0 ng/mL (0.0-7.9); POC - TROPONIN <0.05 ng/mL (<=0.05)
== END 2016-09-10 15:47 | disposition home or self-care (01) ==
LOC: CED 12:38
PROVIDERS: Emergency Medicine
DX: R07.9 Chest pain, unspecified (principal); F41.9 Anxiety disorder, unspecified; F43.10 Post-traumatic stress disorder, unspecified; F32.9 Major depressive disorder, single episode, unspecified; I11.0 Hypertensive heart disease with heart failure; I50.9 Heart failure, unspecified; F17.210 Nicotine dependence, cigarettes, uncomplicated; Z79.82 Long term (current) use of aspirin; Z79.899 Other long term (current) drug therapy
CPT/HCPCS: 36415; 71010; 80048; 80076; 82553; 83880; 84484; 85025; 85610; 85730; 93005; 96374; 99285

== ENCOUNTER → 2016-11-05 | Outpatient (CLI) | payer OTHER ==
[2016-11-05 16:51] LABS: HEMATOCRIT 45.3 % (38.0-50.0); HEMOGLOBIN 15.2 gm/dL (13.0-16.0); MEAN CELL VOLUME 79.4 FL (83-96); MEAN CORPUSCULAR HEMOGLOBIN 26.6 PG (28-34); MEAN CORPUSCULAR HGB CONC 33.5 g/dL (30-36); MEAN PLATELET VOLUME 8.8 FL (6.5-11.5); RED BLOOD COUNT 5.7 X10e (3.90-5.60); RED CELL DISTRIBUTION WIDTH 15.2 % (11.0-15.5); WHITE BLOOD COUNT 11.3 X10e3 (4.0-10.5)
[2016-11-05 17:10] LABS: BUN/CREATININE RATIO 15.45; CALCIUM SERUM 8.9 mg/dL (8.4-10.2); CREATININE SERUM 1.1 mg/dL (0.6-1.4); GLOM FILT RATE Estimated 73.1 mL/min (>60); POTASSIUM 3.4 mmol/L (3.5-5.1); URIC ACID 5.6 mg/dL (2.6-7.2)
[2016-11-05 17:15] LABS: CREATININE,RANDOM URINE 77 mg/dL; TOTAL PROTEIN,RANDOM URINE <10 mg/dl (<10)
[2016-11-05 18:11] LABS: URINE APPEARANCE CLEAR; URINE BILIRUBIN NEG (NEG); URINE BLOOD NEG (NEG); URINE COLOR YELLOW; URINE GLUCOSE NEG (NEG); URINE KETONE NEG (NEG); URINE LEUKOCYTE ESTERASE NEG (NEG); URINE NITRATE NEG (NEG); URINE PROTEIN NEG (NEG); URINE SPECIFIC GRAVITY 1.013 (1.003-1.035); URINE UROBILINOGEN 0.2 MG/DL (NEG)
[2016-11-05 18:15] LABS: URINE SOURCE CLEAN CATCH
[2016-11-12 11:52] LABS: ANA SCREEN Negative (Negative); HEP C AB (HEPPAN) Nonreactive (Nonreactive); HEP C AB SIGNAL TO CUTOFF 0.04 ratio (<1.00)
== END | disposition home or self-care (01) ==
LOC: CLAB 15:58
PROVIDERS: Internal Medicine Nephrology
DX: N18.3 Chronic kidney disease, stage 3 (moderate) (principal)
CPT/HCPCS: 36415; 80048; 81003; 82570; 82728; 83540; 83550; 84156; 84550; 85027; 86038; 86039; 86225; 86803

== ENCOUNTER 2016-11-25 05:52 | Emergency (ER) | payer OTHER ==
[~2016-11-25] VITALS: Ht 167.6 cm; Wt 136.1 kg
--- NOTE | ~2016-11-25 | CT4 ---
[facility] A Service of [facility] & [facility] / [facility] RADIOLOGY TEXT RESULTS PATIENT: PREET HOWARD LOCATION: [facility] : 57 UNIT #: [id number] AGE: [address]: Douglas Osuna MD SEX: M ORDER DR: [id number] [facility] [address] [place], [place] [address] [id number] E MR#: [id number] Acc #: [id number] NAME: PREET HOWARD : 1955 SEX: M STUDY DATE/TIME: 11/25/2016 6:50 UNIT: [facility] ROOM: STUDY DESCRIPTION: CT Abd and Pelv Wo Cont Attending Physician: Douglas Osuna M.D. Ordering Physician: Douglas Osuna M.D. Primary Care Physician: Tracie Weathers M.D. MEDICAL IMAGING REPORT This report is preliminary unless electronic signature is present EXAM CT abdomen and pelvis without contrast. HISTORY Right lower back pain for 4 days. FINDINGS Axial images performed through the abdomen and pelvis without contrast. This CT exam was performed with one or more of the following radiation dose reduction techniques: automatic exposure control, adjustment of mA and/or kV according to patient size, and iterative reconstruction. Multiplanar reconstructed images reviewed at a workstation. ABDOMEN: Lung bases unremarkable. Liver suggests mild fatty infiltration. Spleen and gallbladder unremarkable except for a small splenule off the posterior aspect of spleen. Pancreas and adrenal glands unremarkable. There are bilateral renal cortical cyst with a 7.1 cm exophytic cyst off the anterior aspect of the left kidney, a 5.7 cm cyst off the anterior aspect of the lower pole of the right kidney. There is also a smaller left posterior renal cortical cyst. Visualized GI tract unremarkable except for a few scattered colonic diverticula. Retroperitoneum unremarkable. PELVIS: Bladder and prostate appear normal. Osseous structures remarkable for multilevel degenerative disc disease L2-3, L3-4, L5-S1. A small amount of calcification or ossification is seen in the right posterior flank musculature possibly related to prior trauma. Moderate obesity. IMPRESSION 1. No acute intraabdominal or intrapelvic pathology identified. 2. Multiple bilateral renal cysts. 3. Mild fatty infiltration liver. STS. [facility] A Service of [facility] & [facility] RADIOLOGY TEXT RESULTS PATIENT: PREET HOWARD LOCATION: [facility] : 57 UNIT #: [id number] AGE: [address]: Douglas Osuna MD SEX: M ORDER DR: 4. Multilevel multifocal degenerative disc disease L2-3, L3-4, L5-S1. Dictated by... Benny Nieto M.D. THIS IS AN ELECTRONICALLY VERIFIED REPORT Benny Nieto M.D. at 11/25/2016 4:46 PM NIHARIKA/naman TD: 11/25/2016 09:30 JOB #: [id number] MEDICAL IMAGING REPORT Page 1 of 1 COPY
[2016-11-25 06:48] LABS: URINE SOURCE CLEAN CATCH
[2016-11-25 06:54] LABS: URINE APPEARANCE CLEAR; URINE BILIRUBIN NEG (NEG); URINE BLOOD NEG (NEG); URINE COLOR YELLOW; URINE GLUCOSE NEG (NEG); URINE KETONE NEG (NEG); URINE LEUKOCYTE ESTERASE NEG (NEG); URINE NITRATE NEG (NEG); URINE PH 5.5 (5-8); URINE PROTEIN NEG (NEG); URINE SPECIFIC GRAVITY 1.023 (1.003-1.035); URINE UROBILINOGEN 0.2 MG/DL (NEG)
[2016-11-25 06:58] LABS: CULTURE INDICATED? NO
[2016-11-25 07:00] LABS: BASOPHIL# 0.1 X10e3 (0-0.3); BASOPHIL% 0.8 % (0-2.5); EOSINOPHIL# 0.2 X10e3 (0-0.7); EOSINOPHIL% 2.1 % (0.0-7.0); HEMOGLOBIN 14.1 gm/dL (13.0-16.0); LYMPHOCYTE# 2.6 X10e3 (1.0-3.5); LYMPHOCYTE% 27.3 % (17.0-45.0); MEAN CELL VOLUME 79.5 FL (83-96); MEAN CORPUSCULAR HGB CONC 32.8 g/dL (30-36); MEAN PLATELET VOLUME 8.8 FL (6.5-11.5); MONOCYTE# 1.1 X10e3 (0-1.0); MONOCYTE% 11.7 % (3.0-12.0); NEUTROPHIL# 5.5 X10e3 (1.5-7.1); NEUTROPHIL% 58.1 % (40-75); PLATELET COUNT 179 X10e3 (140-420); RED BLOOD COUNT 5.41 X10e (3.90-5.60); RED CELL DISTRIBUTION WIDTH 15.7 % (11.0-15.5); WHITE BLOOD COUNT 9.5 X10e3 (4.0-10.5)
[2016-11-25 07:01] LABS: DIFF IND NO
[2016-11-25 07:12] LABS: POC - CKMB <1.0 ng/mL (0.0-7.9); POC - TROPONIN <0.05 ng/mL (<=0.05)
[2016-11-25 07:26] LABS: ALBUMIN SERUM 3.7 g/dL (3.5-5.0); BILIRUBIN, DIRECT 0.3 mg/dL (0.0-0.2); BILIRUBIN,INDIRECT 0.8 mg/dL (0.0-0.9); BILIRUBIN,TOTAL 1.1 mg/dL (0.2-2.0); BUN/CREATININE RATIO 23.75; CALCIUM SERUM 9.2 mg/dL (8.4-10.2); CREATININE SERUM 0.8 mg/dL (0.6-1.4); GLOM FILT RATE Estimated 97.1 mL/min (>60); POTASSIUM 3.3 mmol/L (3.5-5.1)
== END 2016-11-25 08:02 | disposition home or self-care (01) ==
LOC: CED 05:52
PROVIDERS: Emergency Medicine
DX: M54.5 Low back pain (principal); R10.9 Unspecified abdominal pain; I10 Essential (primary) hypertension; E78.5 Hyperlipidemia, unspecified
CPT/HCPCS: 36415; 74176; 80048; 80076; 81003; 82553; 84484; 85025; 96374; 99284; J1170